=== PATIENT | male | born 1970 | race Asian ===

== ENCOUNTER → 2024-01-26 | Day surgery (SDC) | payer OTHER ==
[2024-01-11 13:41] LABS: BASOPHILS % 0.3 % (0.0-1.0); EOSINOPHILS # (AUTO) 0.2 (0.0-0.4); EOSINOPHILS % 3.7 % (0.0-6.0); HEMATOCRIT 47.8 % (38.2-49.6); HEMOGLOBIN 15.3 g/dL (14.0-18.0); LYMPHOCYTES # (AUTO) 1.9 (1.0-3.2); LYMPHOCYTES % 30.9 % (18.0-39.1); MEAN CORPUSCULAR VOLUME 96.8 fL (81-99); MONOCYTES # (AUTO) 0.7 (0.2-0.8); MONOCYTES % 10.6 % (4.4-11.3); NEUTROPHILS # (AUTO) 3.3 (2.1-6.9); NEUTROPHILS % 54.3 % (38.7-80.0); PLATELET COUNT 250 x10e3/uL (140-360); RED BLOOD COUNT 4.94 x10e6/uL (4.3-5.7); RED CELL DISTRIBUTION WIDTH 12.3 % (11.7-14.4); WHITE BLOOD COUNT 6.15 x10e3/uL (4.8-10.8)
[2024-01-11 13:48] LABS: ANION GAP 17.1 mmol/L (8-16); CALCIUM 9.5 mg/dL (8.4-10.2); CREATININE, SERUM 1.36 mg/dL (0.72-1.25); POTASSIUM 5.1 mmol/L (3.5-5.1)
[~2024-01-26] MED LIST: CELEBREX200 MG PO; JARDIANCE25 MG PO; LEVEMIR100 UNIT/1 SQ; METFORMIN HCL500 MG PO; NEURONTIN300 MG PO; PROTONIX40 MG PO; [UNRECOGNIZED DRUG - OTHER] PO
[2024-01-26] MEDS: CEFAZOLIN SODIUM 2 GM ONE (06:54)
[2024-01-26] MEDS: LACTATED RINGER'S 1,000 ML ONE (06:54)
[2024-01-26 09:55] VITALS: TEMP 97.6
[2024-01-26 10:20] VITALS: BP 136/80; PULSE 61; RESP 18; O2SAT 97
== END | disposition home or self-care (01) ==
LOC: OR 06:16
PROVIDERS: ATTEND Orthopaedic Surgery
DX: M75.122 Complete rotator cuff tear or rupture of left shoulder, not specified as traumatic (principal); M75.42 Impingement syndrome of left shoulder; M65.912 Unspecified synovitis and tenosynovitis, left shoulder; M75.02 Adhesive capsulitis of left shoulder; E11.9 Type 2 diabetes mellitus without complications; Z01.810 Encounter for preprocedural cardiovascular examination; Z01.812 Encounter for preprocedural laboratory examination; Z79.84 Long term (current) use of oral hypoglycemic drugs; Z79.4 Long term (current) use of insulin; Z79.899 Other long term (current) drug therapy
CPT/HCPCS: 29822; 29826; 36415; 80048; 85025; 93005; J0690; J7121